=== PATIENT | male | born 1970 | race Caucasian/White ===

== ENCOUNTER 2016-12-18 12:53 | Emergency (ER) | payer OTHER ==
[~2016-12-18] VITALS: Ht 177.8 cm; Wt 70.3 kg
[~2016-12-18 12:53] MED LIST: DICLOFENAC SODI75 M2 PO; FIORICET 325 MG1 TAB PO; FLEXERIL10 MG PO; ZITHROMAX Z-PA250 M1 PO
[2016-12-18 13:05] VITALS: BP 111/74
--- NOTE | 2016-12-18 14:38 | ED INFLUENZA/URI COMPLAINT ---
History of Present Illness General Chief Complaint: Upper Respiratory Sx/Fever Stated Complaint: COUGH,SINUS PRESSURE,CHEST CONGESTION X 1 MONTH Source: patient, old records Exam Limitations: no limitations Vital Signs & Intake/Output Vital Signs & Intake/Output Vital Signs Date Time Temp Pulse Resp B/P B/P Pulse O2 O2 Flow FiO2 Mean Ox Delivery Rate 12/18 1527 97.3 12/18 1526 97.3 15 12/18 1455 Room Air Room Air 12/18 1454 99.0 12/18 1305 99.0 76 20 111/74 97 Room Air Allergies Coded Allergies: Penicillins (UNKNOWN 12/18/16) aspirin (GI DISTRESS 12/18/16) Reconcile Medications Benzonatate (Tessalon Perle) 100 MG CAPSULE 1 CAP PO TID PRN cough Ibuprofen 600 MG TABLET 1 TAB PO Q6PRN PRN pain with food Prednisone 20 MG TABLET 1 TAB PO BID sinusitis Sulfamethoxazole/Trimethoprim (Bactrim Ds Tablet) 800 MG-160 MG TABLET 1 TAB PO BID sinusitis Triage Note: PT PRESENTS TO ER C/O OF COUGH, SINUS PRESSURE, AND CHEST CONGESTION FOR A MONTH. PER PT "I THINK I HAVE A COLD THAT JUST WONT GO AWAY. I HAVE BEEN TAKING MUCINEX BUT I STILL HAVE MY SYMPTOMS." Triage Nurses Notes Reviewed? yes Onset: last month Duration: week(s):, continues in ED, waxing and waning Timing: recent history Severity: moderate Prior Episodes/Possible Cause: illness exposure No Modifying Factors: none Associated Symptoms: cough, facial pain, fever/chills, muscle aches, nasal congestion, nasal drainage, sinus infection, sore throat HPI: 1 month prior to admission patient complains of nasal congestion sore throat productive cough. Symptoms improved after using Mucinex for week and recurred 1 week ago with facial pain headache. He denies fever chills chest pain shortness of breath dysuria rash bleeding. Past History Travel History Traveled to [place] past 21 day No Medical History Any Pertinent Medical History? none Neurological: NONE EENT: NONE Cardiovascular: NONE Respiratory: NONE Gastrointestinal: NONE Hepatic: NONE Renal: NONE Musculoskeletal: NONE Psychiatric: NONE Endocrine: NONE Blood Disorders: NONE Cancer(s): NONE [employer]CHITECT/Reproductive: NONE Surgical History Surgical History: non-contributory Psychosocial History What is your primary language Armenian Tobacco Use: Current Daily Use Daily Tobacco Use Amount/Type: => 5 Cigarettes daily Family History Hx Contributory? No Review of Systems Review of Systems Constitutional: Reports: see HPI, malaise. EENTM: Reports: see HPI, nasal congestion, throat pain. Respiratory: Reports: see HPI, cough, sputum production. Cardiovascular: Reports: no symptoms. GI: Reports: no symptoms. Genitourinary: Reports: no symptoms. Musculoskeletal: Reports: no symptoms. Skin: Reports: no symptoms. Neurological/Psychological: Reports: no symptoms. Hematologic/Endocrine: Reports: no symptoms. Immunologic/Allergic: Reports: no symptoms. All Other Systems: Reviewed and Negative Physical Exam Physical Exam General Appearance: well developed/nourished, alert, awake, anxious, mild distress Head: atraumatic, normal appearance Eyes: Bilateral: normal appearance, PERRL, EOMI. Ears, Nose, Throat: moist mucous membrane, nasal congestion, nasal drainage, pharyngeal erythema Neck: normal inspection, supple, full range of motion, trachea midline, lymphadenopathy (R), lymphadenopathy (L) Respiratory: normal breath sounds, chest non-tender, no respiratory distress, quiet respiration, lungs clear Cardiovascular: regular rate/rhythm, normal peripheral pulses, norml femoral pulses equa Peripheral Pulses: 4+ carotid (R), 4+ carotid (L) Gastrointestinal: normal bowel sounds, soft, non-tender, no organomegaly Back: normal inspection, normal range of motion, no vertebral tenderness Extremities: normal inspection, normal capillary refill, normal range of motion, no edema Neurologic/Psych: no motor/sensory deficits, awake, alert, oriented x 3, normal gait, normal mood/affect, second baller II-XII nml as tested Reflexes: 2+: bicep (R), bicep (L). Skin: intact, normal color, warm/dry Lymphatic: no anterior cervical shannon Core Measures Severe Sepsis Present: No Septic Shock Present: No Progress Differential Diagnosis: influenza, pneumonia, pharyngitis, sinusitis Plan of Care: Current Medications Sig/Margarita Start time Last Medication Dose Stop Time Status Admin Ibuprofen 600 MG ONCE ONE 12/18 1444 UNVr (Motrin) 12/18 1445 Oxymetazoline HCl 2 SPRAY ONCE ONE 12/18 1444 UNVr (Afrin) 12/18 1445 Prednisone 60 MG ONCE ONE 12/18 1444 UNVr 12/18 144 Trimethoprim/ 1 TAB ONCE ONE 04/26 1445 UNVr Sulfamethoxazole 12/18 1446 (Bactrim DS) Initial ED EKG: none Departure Departure Time of Disposition: 1455 Disposition: HOME OR SELF CARE Condition: Stable Clinical Impression Primary Impression: Sinusitis, acute Qualifiers: Sinusitis location: unspecified location Recurrence: not specified as recurrent Qualified Code: J01.90 - Acute sinusitis, unspecified Referrals: BREANNA YANG,JORGE Batres (PCP/Family) Departure Forms: Customer Survey General Discharge Information Prescriptions: Current Visit Scripts Sulfamethoxazole/Trimethoprim (Bactrim Ds Tablet) 1 TAB PO BID #20 TAB Prednisone 1 TAB PO BID #10 TAB Benzonatate (Tessalon Perle) 1 CAP PO TID PRN cough #21 CAP Ibuprofen 1 TAB PO Q6PRN PRN pain #50 TAB with food
[2016-12-18] MEDS ORDERED: IBUPROFEN600 M1 PO (15:13)
[2016-12-18] MEDS ORDERED: BACTRIM DS TAB1 EACH PO (15:13)
[2016-12-18] MEDS ORDERED: TESSALON PERLE100 M1 PO (15:13)
[2016-12-18] MEDS ORDERED: PREDNISONE20 M1 PO (15:13)
== END 2016-12-18 15:27 ==
LOC: ERH 12:53
DX: J32.9 Chronic sinusitis, unspecified (principal)